=== PATIENT | male | born 1990 | race Caucasian/White ===

== ENCOUNTER 2022-03-28 01:58 | Emergency (ER) | payer BC ==
[2022-03-28 02:53] LABS: HEMOGLOBIN 14.8 gm/dl (14.0-17.5); RED BLOOD COUNT 4.73 M/UL (4.20-5.50); WHITE BLOOD COUNT 4.5 K/UL (4.5-11.0)
[2022-03-28 03:12] LABS: BUN/CREATININE RATIO 18 (0-10)
== END 2022-03-28 05:45 | disposition home or self-care (01) ==
LOC: ER1 01:58
PROVIDERS: Physician Assistant
DX: R50.9 Fever, unspecified (principal); R51.9 Headache, unspecified; M79.10 Myalgia, unspecified site; Z20.822 Contact with and (suspected) exposure to COVID-19; E11.9 Type 2 diabetes mellitus without complications; Z79.899 Other long term (current) drug therapy
CPT/HCPCS: 0240U; 71045; 80053; 81001; 82550; 85025; 87081; 87880; 99283

== ENCOUNTER 2022-03-29 14:42 | Observation (INO) | payer BC ==
[~2022-03-29] VITALS: Ht 180.3 cm; Wt 102.1 kg
[2022-03-29 16:20] LABS: HEMOGLOBIN 16.5 gm/dl (14.0-17.5); RED BLOOD COUNT 5.19 M/UL (4.20-5.50)
[2022-03-29 16:22] LABS: WHITE BLOOD COUNT 3.1 K/UL (4.5-11.0)
[2022-03-29 16:22] LABS: BORDETELLA PARAPERTUSSIS Not Detected (Not Detectd); BORDETELLA PERTUSSIS Not Detected (Not Detectd); CHLAMYDIA PNEUMONIAE Not Detected (Not Detectd); CORONAVIRUS HKU1 Not Detected (Not Detectd); CORONAVIRUS NL63 Not Detected (Not Detectd); CORONAVIRUS OC43 Not Detected (Not Detectd); CORONOAVIRUS 229E Not Detected (Not Detectd); HUMAN METAPNEUMOVIRUS Not Detected (Not Detectd); HUMAN RHINOVIRUS/ENTEROVIRUS Not Detected (Not Detectd); INFLUENZA A Not Detected (Not Detectd); INFLUENZA B Not Detected (Not Detectd); MYCOPLASMA PNEUMONIAE Not Detected (Not Detectd); PARAINFLUENZA VIRUS 1 Not Detected (Not Detectd); PARAINFLUENZA VIRUS 2 Not Detected (Not Detectd); PARAINFLUENZA VIRUS 3 Not Detected (Not Detectd); PARAINFLUENZA VIRUS 4 Not Detected (Not Detectd); RESPIRATORY SYNCYTIAL VIRUS Not Detected (Not Detectd)
[2022-03-29 16:53] LABS: BUN/CREATININE RATIO 13 (0-10)
[2022-03-29 17:15] LABS: SARS-CoV-2 NOT DETECTED (Not Detectd)
[2022-03-29 18:21] LABS: CRYPTOCOCCUS NEOFORMANS/GATTII Not Detected (Negative); CYTOMEGALOVIRUS Not Detected (Negative); ENTEROVIRUS Not Detected (Negative); ESCHERICHIA COLI K1 Not Detected (Negative); HAEMOPHILUS INFLUENZAE Not Detected (Negative); HERPES SIMPLEX VIRUS 1 Not Detected (Negative); HERPES SIMPLEX VIRUS 2 Not Detected (Negative); HUMAN HERPESVIRUS 6 Not Detected (Negative); HUMAN PARECHOVIRUS Not Detected (Negative); LISTERIA MONOCYTOGENES Not Detected (Negative); NEISERRIA MENINGITIDIS Not Detected (Negative); STREPTOCOCCUS AGALACTIAE Not Detected (Negative); STREPTOCOCCUS PNEUMONIAE Not Detected (Negative); VARICELLA ZOSTER VIRUS Not Detected (Negative)
[2022-03-29 18:33] LABS: GLUCOSE,CSF 64 mg/dL (50-80); TOTAL PROTEIN,CSF 34 mg/dL (20-45)
[2022-03-29 18:36] LABS: WBC (AUTOMATED 3 10^3 (0-5)
[2022-03-29 18:39] LABS: RBC (AUTOMATED) 3800 10^6 (0)
[2022-03-30 03:26] LABS: RED BLOOD COUNT 5.07 M/UL (4.20-5.50); WHITE BLOOD COUNT 4.2 K/UL (4.5-11.0)
[2022-03-30 03:35] LABS: BUN/CREATININE RATIO 14 (0-10)
[2022-03-30] MEDS ORDERED: LISINOPRIL30 MG PO (10:14)
[2022-03-30] MEDS ORDERED: ROPINIROLE HC0.25 MG PO (10:15)
[2022-03-30] MEDS ORDERED: ONE-A-DAY MEN200 MCG PO (10:17)
[2022-03-30] MEDS ORDERED: VITAMIN D325 MCG PO (10:17)
--- NOTE | 2022-03-30 18:08 | NUR ---
PT. TAKING SHOWER. CALLS ME TO ROOM AND NOTICED A REDNESS STARTING AT SCAPULA AT ITS WIDEST PART THEN NARROWS ALONG SIDES OF SPINE TO FEET. NO RASH NOTED, ONLY REDNESS. FINDING REPORTED TO DR. DE ANDA
[2022-03-31 02:38] LABS: HEMOGLOBIN 13.9 gm/dl (14.0-17.5); RED BLOOD COUNT 4.43 M/UL (4.20-5.50); WHITE BLOOD COUNT 2.5 K/UL (4.5-11.0)
[2022-03-31 02:54] LABS: BUN/CREATININE RATIO 15 (0-10)
[2022-03-31 14:09] LABS: LYME TOTAL ANTIBODY EIA Negative (Negative)
[2022-03-31] MEDS ORDERED: LEVOFLOXACIN500 MG PO (15:30)
[2022-04-01 07:11] LABS: HBSAG SCREEN Negative (Negative); HCV AB <0.1 (0.0-0.9); HEP A AB, IGM Negative (Negative); HEP B CORE AB, IGM Negative (Negative)
[2022-04-01 07:11] LABS: HIV AB/P24 AG SCREEN Non Reactive (Non Reactive)
[2022-04-01 10:14] LABS: ANTI-CENTROMERE B ANTIBODIES <0.2 AI (0.0-0.9); ANTI-DNA (DS) AB QN <1 IU/mL (0-9); ANTI-JO-1 <0.2 AI (0.0-0.9); ANTICHROMATIN ANTIBODIES <0.2 AI (0.0-0.9); ANTIRIBOSOMAL P ANTIBODIES <0.2 AI (0.0-0.9); ANTISCLERODERMA-70 ANTIBODIES <0.2 AI (0.0-0.9); RNP ANTIBODIES <0.2 AI (0.0-0.9); SJOGREN'S ANTI-SS-A <0.2 AI (0.0-0.9); SJOGREN'S ANTI-SS-B <0.2 AI (0.0-0.9); SMITH ANTIBODIES <0.2 AI (0.0-0.9); SMITH/RNP ANTIBODIES <0.2 AI (0.0-0.9)
[2022-04-02 11:13] LABS: % CD 4 POS. LYMPH. 42.7 % (30.8-58.5)
== END 2022-03-31 16:23 | disposition home or self-care (01) ==
LOC: ER1 14:42 → M/S 20:18 → CDU 20:18 → M/S 22:05
PROVIDERS: Emergency Medicine; Internal Medicine; Internal Medicine Infectious Disease; ADMIT Internal Medicine
DX: R50.9 Fever, unspecified (principal); D72.819 Decreased white blood cell count, unspecified; R16.1 Splenomegaly, not elsewhere classified; I10 Essential (primary) hypertension; R74.01 Elevation of levels of liver transaminase levels; R05.9 Cough, unspecified; R51.9 Headache, unspecified; R73.03 Prediabetes; Z20.822 Contact with and (suspected) exposure to COVID-19
CPT/HCPCS: 36415; 70450; 71045; 76700; 80048; 80053; 80074; 81001; 82550; 82553; 82945; 82977; 83516; 83605; 83735; 84157; 84484; 85025; 85610; 85730; 86140; 86361; 86403; 86431; 86618; 86666; 86757; 87040; 87070; 87205; 87278; 87385; 87389; 87483; 87633; 87798; 89051; 93005; 96361; 96374; 96376; 99285; G0378; J0696; J2405; U0002

== ENCOUNTER → 2022-04-07 | Outpatient (CLI) | payer BC ==
[~2022-04-07] MED LIST: LEVOFLOXACIN500 MG PO; LISINOPRIL30 MG PO; ONE-A-DAY MEN200 MCG PO; ROPINIROLE HC0.25 MG PO; VITAMIN D325 MCG PO
== END ==
LOC: RAD 16:07
DX: R50.9 Fever, unspecified (principal)
CPT/HCPCS: 71046